=== PATIENT | male | born 1960 | race Caucasian/White ===

== ENCOUNTER 2022-07-18 11:38 | Emergency (ER) | payer BC, OTHER, SELFPAY ==
[2022-07-18 12:28] VITALS: BP 140/102; PULSE 90; RESP 20; TEMP 36.8; O2SAT 97; BMI 24.7
--- NOTE | 2022-07-18 12:30 | ED_ITS ---
HPI - Wound/Laceration General Chief Complaint: Skin/Abscess/Foreign Body <ROSELIA Pate Last Filed: 07/18/22 12:31> Stated Complaint: Finger lac <ROSELIA Pate Last Filed: 07/18/22 12:31> Time Seen by Provider: 07/18/22 12:39 <ROSELIA Pate Last Filed: 07/18/22 12:31> Source: patient <ROSELIA Caro Last Filed: 07/18/22 14:00> Mode of arrival: ambulatory <ROSELIA Caro Last Filed: 07/18/22 14:00> History of Present Illness HPI narrative: 62-year-old male with no significant past medical history presenting to the ED complaining of laceration to right index and middle finger s/p cutting laminate [employer]. States slipped and fell backwards while gripping laminate causing laminate to cut fingers. Tetanus up-to-date. Reports had difficulty stopping the bleeding from middle finger. Denies taking anticoagulation, injury to the area, head trauma/LOC, numbness/tingling <ROSELIA Caro Last Filed: 07/18/22 14:00> Onset (ago): hour(s) <ROSELIA Caor Last Filed: 07/18/22 14:00> Related Data Allergies/Adverse Reactions: Allergies Allergy/AdvReac Type Severity Reaction Status Date / Time No Known Allergies Allergy Verified 07/18/22 12:30 <ROSELIA Pate Last Filed: 07/18/22 12:31> Review of Systems Review of Systems: Constitutional: No Fever, No Chills ENT/Mouth: No Ear Pain, No Nasal Congestion, No Rhinorrhea, No Swallowing Difficulty Cardiovascular: No Chest Pain, No SOB Respiratory: No Cough, No Sputum, No Wheezing Gastrointestinal: No Nausea, No Vomiting Musculoskeletal: No joint pain, No Myalgias, No Joint Swelling Skin: + laceration, No rash Neuro: No Weakness, No Numbness, No Paresthesias <ROSELIA Caro Last Filed: 07/18/22 14:00> Yes all other systems are reviewed and are negative <ROSELIA Caro Last Filed: 07/18/22 14:00> Constitutional: Constitutional: Reports as per HPI <ROSELIA Caro - Last Filed: 07/18/22 14:00> [facility] Past Medical History Attestation statement: The following information was validated with the patient. <ROSELIA Caro - Last Filed: 07/18/22 14:00> Social History Social History: Social History Advance Directives: No Advance Directives Information Provided: Yes <ROSELIA Pate - Last Filed: 07/18/22 12:31> Physical Exam Vital Signs: Vital Signs: Last Vital Signs Temp 98.2 F 07/18/22 12:28 Pulse 90 07/18/22 12:28 Resp 20 07/18/22 12:28 BP 140/102 H 07/18/22 12:28 Pulse Ox 97 07/18/22 12:28 O2 Del Method 07/18/22 12:28 BMI result Body Mass Index 24.7 <ROSELIA Pate - Last Filed: 07/18/22 12:31> Vital Signs: Last Vital Signs Temp 98.2 F 07/18/22 12:28 Pulse 90 07/18/22 12:28 Resp 20 07/18/22 12:28 BP 140/102 H 07/18/22 12:28 Pulse Ox 97 07/18/22 12:28 O2 Del Method 07/18/22 12:28 BMI result Body Mass Index 24.7 <ROSELIA Caro - Last Filed: 07/18/22 14:00> Const: General: cooperative, healthy appearing and no acute distress <ROSELIA Caro - Last Filed: 07/18/22 14:00> Orientation/consciousness: patient oriented x3 <ROSELIA Caro - Last Filed: 07/18/22 14:00> Limitations: no limitations <ROSELIA Caro - Last Filed: 07/18/22 14:00> HEENT: Head: Yes normal to inspection and Yes atraumatic <ROSELIA Caro - Last Filed: 07/18/22 14:00> Ears: hearing grossly normal bilaterally <ROSELIA Caro - Last Filed: 07/18/22 14:00> General nose exam: Normal external nose present <ROSELIA Caro Last Filed: 07/18/22 14:00> Face and sinus: Yes normal facial exam <ROSELIA Caro - Last Filed: 07/18/22 14:00> Eyes: General: appearance normal, both eyes and all related structures <ROSELIA Caro - Last Filed: 07/18/22 14:00> EOM: EOMs intact bilaterally <ROSELIA Caro - Last Filed: 07/18/22 14:00> Neck: Neck: Yes normal visual inspection and Yes no meningeal signs <ROSELIA Caro - Last Filed: 07/18/22 14:00> Resp: Effort & Inspection: normal respiratory effort and no respiratory distress <ROSELIA Caro - Last Filed: 07/18/22 14:00> Auscultation: clear to auscultation bilaterally <ROSELIA Caro - Last Filed: 07/18/22 14:00> Cardio: Rate: regular rate <ROSELIA Caro - Last Filed: 07/18/22 14:00> Skin: Rashes: no rashes <ROSELIA Caro - Last Filed: 07/18/22 14:00> Neuro: General: patient oriented x3, tone normal and no meningeal signs <ROSELIA Caro - Last Filed: 07/18/22 14:00> Gait exam (Neuro): Normal gait present <ROSELIA Caro - Last Filed: 07/18/22 14:00> Extrem: Other: + superficial 1 cm lacerations noted to palmar aspect of distal index finger and middle finger. Active bleeding from middle finger. Sensation intact to light touch throughout. Full range of motion intact. <ROSELIA Caro Last Filed: 07/18/22 14:00> Course Course Course Narrative: [id number] 62yoM presenting to the ED with compalints of two finger laceration to left hand index and middle finger at the distal tip that occurred prior to arrival while he was trying to cut laminae it. He reports he believes he is up-to-date on tetanus. He denies any bony tenderness, foreign bodies or paresthesias or any other symptoms complaints or concerns at this time. Plan: Exam will be deferred to [facility] provider. <ROSELIA Pate - Last Filed: 07/18/22 12:31> Medications Administered Discontinued Medications Generic Name Dose Route Start Last Admin Trade Name Freq PRN Reason Stop Dose Admin Lidocaine HCl 5 ml 07/18/22 12:39 07/18/22 13:20 Lidocaine Hcl 1 % Mpf 5 Ml Vial SUBCUT 07/18/22 12:40 5 ml ONCE ONE Administration <ROSELIA Pate - Last Filed: 07/18/22 12:31> Medications Administered Discontinued Medications Generic Name Dose Route Start Last Admin Trade Name Freq PRN Reason Stop Dose Admin Lidocaine HCl 5 ml 07/18/22 12:39 07/18/22 13:20 Lidocaine Hcl 1 % Mpf 5 Ml Vial SUBCUT 07/18/22 12:40 5 ml ONCE ONE Administration <ROSELIA Caro - Last Filed: 07/18/22 14:00> Medical Decision Making Medical Decision Making MDM Narrative: 62-year-old male with no significant past medical history presenting to the ED complaining of laceration to right index and middle finger s/p cutting laminate [employer]. On exam vital signs stable, NAD, nontoxic appearing physical exam as noted above. Underlying structures appear intact. Plan: repair wounds Results discussed with patient including worrisome signs and symptoms and strict return precautions, and when to return to the emergency department. They verbalized understanding and feel safe for discharge at this time. <ROSELIA Caro - Last Filed: 07/18/22 14:00> Differential Diagnosis Differential Diagnoses: The differential diagnosis associated with the presentation includes <ROSELIA Caro - Last Filed: 07/18/22 14:00> as above <ROSELIA Caro - Last Filed: 07/18/22 14:00> Procedures Laceration Laceration 1: Site: hand <ROSELIA Caro - Last Filed: 07/18/22 14:00> Side (If applicable): right <ROSELIA Caro Last Filed: 07/18/22 14:00> Size (cm): 1 <ROSELIA Caro - Last Filed: 07/18/22 14:00> Description: linear <ROSELIA Caro - Last Filed: 07/18/22 14:00> Depth: simple, single layer <ROSELIA Caro - Last Filed: 07/18/22 14:00> Skin layer closed with: other (dermabond) <ROSELIA Caro - Last Filed: 07/18/22 14:00> Laceration 2: Site: hand <ROSELIA Caro - Last Filed: 07/18/22 14:00> Side (If applicable): right <ROSELIA Caro - Last Filed: 07/18/22 14:00> Size (cm): 1 <ROSELIA Caro - Last Filed: 07/18/22 14:00> Description: linear <ROSELIA Caro - Last Filed: 07/18/22 14:00> Depth: simple, single layer <ROSELIA Caro - Last Filed: 07/18/22 14:00> Local Anesthetic: lidocaine 1% <ROSELIA Caro - Last Filed: 07/18/22 14:00> Amount of anesthesia used (mL): 2 <ROSELIA Caro - Last Filed: 07/18/22 14:00> Pre-repair: wound explored <ROSELIA Caro - Last Filed: 07/18/22 14:00> Skin layer closed with: nylon <ROSELIA Caro - Last Filed: 07/18/22 14:00> Size (cm): 4-0 <ROSELIA Caro - Last Filed: 07/18/22 14:00> Number of sutures: 3 <ROSELIA Caro - Last Filed: 07/18/22 14:00> Technique: simple, interrupted <ROSELIA Caro - Last Filed: 07/18/22 14:00> Discharge Plan Discharge Clinical Impression: Finger laceration <ROSELIA Pate Last Filed: 07/18/22 12:31> Patient Disposition: Home, Self-Care <ROSELIA Pate Last Filed: 07/18/22 12:31> Instructions: Finger Laceration (ED) <ROSELIA Pate Last Filed: 07/18/22 12:31> Additional Instructions: Your wounds were repaired today in the emergency department. Keep dry and clean. You need to return to any emergency department, urgent care, or your PCPs office in 7-10 days for suture removal Apply bacitracin and or Neosporin daily Once sutures are removed apply anti scar cream like Mederma If area begins look infected, is red, there is drainage, streaking, or you have fever please return to the emergency department <ROSELIA Pate - Last Filed: 07/18/22 12:31> Referrals: Corrine Mascorro MD [Primary Care Provider] - 1 week <ROSELIA Pate - Last Filed: 07/18/22 12:31> Discharge Date/Time: 07/18/22 13:59 <ROSELIA Pate - Last Filed: 07/18/22 12:31>
[2022-07-18] MEDS: Lidocaine HCl 1 % MPF 5 ML VIAL SUBCUT (13:20)
== END 2022-07-18 13:59 | disposition home or self-care (01) ==
PROVIDERS: Emergency Provider Emergency Medicine; PCP Internal Medicine
DX: S61.210A Laceration without foreign body of right index finger without damage to nail, initial encounter (principal); S61.212A Laceration without foreign body of right middle finger without damage to nail, initial encounter; W27.8XXA Contact with other nonpowered hand tool, initial encounter; Y93.9 Activity, unspecified; Y92.9 Unspecified place or not applicable; Y99.9 Unspecified external cause status
CPT/HCPCS: 12001; 99282; 99284

== ENCOUNTER 2022-07-28 10:43 | Emergency (ER) | payer OTHER, SELFPAY ==
[2022-07-28 11:11] VITALS: BP 126/85; PULSE 87; RESP 16; TEMP 36.6; O2SAT 96; BMI 24.7
--- NOTE | 2022-07-28 11:13 | ED.GENADULT ---
HPI - General Adult General Chief complaint: General Medical Stated complaint: suture removal Time Seen by Provider: 07/28/22 11:13 Source: patient and old records reviewed Mode of arrival: ambulatory Limitations: no limitations History of Present Illness HPI narrative: 62 yo male presenting for suture removal. 3 sutures placed to left middle finger on 07/18 after cutting it with laminant. reports adequate wound healing and denies sxs of infection. complaint: suture removal Onset (ago): day(s) Location: left and upper extremity Radiation: non-radiation Severity: mild Relieving factors: none Exacerbating factors: none Associated symptoms: denies other symptoms Treatments prior to arrival: none Related Data Allergies Allergy/AdvReac Type Severity Reaction Status Date / Time No Known Allergies Allergy Verified 07/18/22 12:30 Review of Systems Review of Systems: Yes all other systems are reviewed and are negative [facility] Social History Social History Advance Directives: No Advance Directives Information Provided: Yes Physical Exam ED Vital Signs: Vital Signs - 24 hr 07/28/22 11:11 Temperature 97.8 F Pulse Rate 87 Respiratory Rate 16 Blood Pressure 126/85 Pulse Oximetry 96 Oxygen Delivery Method Room Air BMI result Body Mass Index 24.7 Appearance: Alert. Oriented X3. No acute distress. HEENT: normal inspection CVS: Normal heart rate and rhythm. Pulses normal. Respiratory: No respiratory distress. Skin: Skin warm and dry. Normal skin color. Normal skin turgor. No rashes. Extremities: pulp of left distal middle finger with well appearing wound w/ [address], no drainage, erythema. 4th digit with superficial appropriately healing laceration as well Neuro: Oriented X 3. grossly normal Course Course Course Narrative: 62 yo male presenting for suture removal s/p placement 10 days ago to left middle finger. wound is healing well. sutures removed with incident. wound margins are well approximated. wound care discussed. stable for d/c Medical Decision Making Differential Diagnosis Differential Diagnoses: The differential diagnosis associated with the presentation includes suture removal, wound infection, delayed healing External Record Review External record reviewed: Outpatient record Critical Care Time Critical Care Time Critical Care Time: No Discharge Plan Discharge Clinical Impression: Visit for suture removal Patient Disposition: Home, Self-Care Instructions: Stitches Removal (ED) Additional Instructions: use bacitracin or neosporin to help promote wound healing and prevent infection
== END 2022-07-28 11:28 | disposition home or self-care (01) ==
PROVIDERS: Emergency Provider Emergency Medicine; PCP Internal Medicine
DX: Z48.02 Encounter for removal of sutures (principal)
CPT/HCPCS: 99282